=== PATIENT | female | born 1995 | race Caucasian/White ===

== ENCOUNTER 2016-11-19 02:04 | Emergency (ER) | payer BC ==
[2016-11-19] MEDS ORDERED: methylPREDNISolone SOD SUCC 125 MG/2 ML VIAL IVP ONE (02:24)
[2016-11-19] MEDS ORDERED: NS 1,000 ML IV ONE (02:24)
[2016-11-19] MEDS ORDERED: FAMOTIDINE 20 MG/2 ML SDV IVP ONE (02:24)
--- NOTE | 2016-11-19 03:31 | EDPHY ---
H & P Stated Complaint: allergic reaction to doxy, taking for bronchitis Time Seen by Provider: 11/19/16 03:08 HPI/ROS: HPI The patient presents with concern for allergic reaction. She started on a course of doxycycline yesterday and has had several doses of it for presumed bronchitis. She broke out in Issue and that is what brought her into the emergency room. She has no shortness of breath, difficulty swallowing, vomiting, dizziness. Prior to my assessment, she has received Benadryl and is feeling better. She has a history of hives as a child which she thought was due to anxiety. She denies any other new exposures. She does have a rash of her left axilla which she saw for the urgent care.. REVIEW OF SYSTEMS Constitutional: No fever, no chills. Eyes: No discharge. ENT: No sore throat. Cardiovascular: No chest pain, no palpitations. Respiratory: No cough, no shortness of breath. Gastrointestinal: No abdominal pain, no vomiting. Genitourinary: No hematuria. Musculoskeletal: No back pain. Skin: Urticaria present Neurological: No headache. PMHx: Healthy Soc Hx: No drug use PHYSICAL General Appearance: Alert, no distress Eyes: Pupils equal and round no pallor or injection ENT, Mouth: Mucous membranes moist Respiratory: There are no retractions, lungs are clear to auscultation Cardiovascular: Regular rate and rhythm Gastrointestinal: Abdomen is soft and non-tender, no masses, bowel sounds normal Neurological: A&O, moves all extremities Skin: Warm and dry, urticarial rash on her abdomen, extremities, back Musculoskeletal: Neck is supple non tender Extremities: symmetrical, full range of motion Psychiatric: Patient is oriented X 3, there is no agitation Source: Patient Exam Limitations: No limitations - Personal History Current Tetanus/Diphtheria Vaccine: Yes Current Tetanus Diphtheria and Acellular Pertussis (TDAP): Yes - Medical/Surgical History Hx Asthma: No Hx Chronic Respiratory Disease: No Hx Diabetes: No Hx Cardiac Disease: No Hx Renal Disease: No Hx Cirrhosis: No Hx Alcoholism: No Hx HIV/AIDS: No Hx Splenectomy or Spleen Trauma: No Other PMH: depression - Social History Smoking Status: Never smoked Constitutional: Initial Vital Signs Temperature (C) 36.8 C 11/19/16 02:10 Heart Rate 105 H 11/19/16 02:10 Respiratory Rate 20 11/19/16 02:10 Blood Pressure 150/90 H 11/19/16 02:10 O2 Sat (%) 98 11/19/16 02:10 O2 Delivery Mode Room Air Allergies/Adverse Reactions: doxycycline Allergy (Verified 11/19/16 20:48) Sulfa (Sulfonamide Antibiotics) Allergy (Verified 11/19/16 02:17) Home Medications: Medication Instructions Recorded Azithromycin [Zithromax] 250 mg PO DAILY #6 tab 11/19/16 Control Pills 11/19/16 Neurontin 11/19/16 Topiramate [Topamax] 11/19/16 lamOTRIGine [Lamictal] 150 mg PO 11/19/16 predniSONE 40 mg PO DAILY 4 Days 11/20/16 Medical Decision Making Differential Diagnosis: This is a 21-year-old female, recently started on doxycycline for bronchitis and axillary rash who presents from home with urticaria without any other signs of allergic reaction. Differential diagnosis includes urticaria, allergic reaction, anaphylaxis. She was monitored in the emergency room for several hours. She was given Solu-Medrol, Pepcid, Benadryl with improvement in her symptoms. I plan on having her stop doxycycline as I feel this is the cause of her reaction. We will start her on azithromycin instead. I have discussed return precautions with her. Because of the rash her axilla, I have referred her to Dermatology. - Data Points Medications Given: Discontinued Medications Diphenhydramine HCl (Benadryl Injection) 25 mg IVP EDNOW ONE Stop: 11/19/16 02:25 Last Admin: 11/19/16 02:44 Dose: 25 mg Famotidine (Pepcid) 20 mg IVP EDNOW ONE Stop: 11/19/16 02:25 Last Admin: 11/19/16 02:44 Dose: 20 mg Sodium Chloride (Ns) 1,000 mls @ 0 mls/hr IV ONCE ONE PRN Reason: Wide Open Stop: 11/19/16 02:25 Last Admin: 11/19/16 02:44 Dose: 1,000 mls Methylprednisolone Sodium Succinate (Solu-Medrol) 125 mg IVP EDNOW ONE Stop: 11/19/16 02:25 Last Admin: 11/19/16 02:44 Dose: 125 mg Departure - Departure Disposition: Home, Routine, Self-Care Clinical Impression: Urticaria, Allergic reaction, Bronchitis Condition: Good Instructions: Antibiotic Medication Allergy (ED) Additional Instructions: Please take Benadryl as needed if the rash continues. You should return to the emergency room if your worse in any way. For the rash in her armpit if it continues for 1 more week, you should follow up with the senior sql d[facility]. Referrals: Amol Alex MD [Medical Doctor] - As per Instructions Prescriptions: Azithromycin [Zithromax] 250 mg PO DAILY #6 tab
[2016-11-19 04:42] VITALS: BP 141/88; PULSE 91; RESP 16; TEMP 98.4; O2SAT 97
== END 2016-11-19 04:41 | disposition home or self-care (01) ==
DX: L50.0 Allergic urticaria (principal); J20.9 Acute bronchitis, unspecified
CPT/HCPCS: 96374; J1200

== ENCOUNTER 2016-11-19 20:47 | Emergency (ER) | payer BC ==
[2016-11-19] MEDS ORDERED: NS 1,000 ML IV ONE (21:03)
[2016-11-19] MEDS ORDERED: predniSONE 20 MG TAB PO ONE (21:03)
[2016-11-19] MEDS ORDERED: FAMOTIDINE 20 MG/2 ML SDV IVP ONE (21:03)
[2016-11-19] MEDS ORDERED: BENZONATATE 100 MG CAP PO ONE (21:34)
[2016-11-20] MEDS ORDERED: AZITHROMYCIN 250 MG TAB PO ONE (00:17)
--- NOTE | 2016-11-20 00:33 | EDPHY ---
H & P Stated Complaint: rebound allergy rxn, seen last night - Medical/Surgical History Hx Asthma: No Hx Chronic Respiratory Disease: No Hx Diabetes: No Hx Cardiac Disease: No Hx Renal Disease: No Hx Cirrhosis: No Hx Alcoholism: No Hx HIV/AIDS: No Hx Splenectomy or Spleen Trauma: No Other PMH: depression - Social History Smoking Status: Never smoked Time Seen by Provider: 11/19/16 20:58 HPI/ROS: Chief complaint: Allergic reaction History of present illness: This is a 21-year-old female who presents to the emergency department for evaluation of an allergic reaction. Patient was seen last night for the same. Patient has been sick for the last few days. She was started on doxycycline for bronchitis 2 days ago. She subsequently developed a rash and was seen in this emergency department last night. She was treated with Solu-Medrol, Benadryl and Pepcid with improvement in symptoms. The doxycycline was stopped and she was switched to azithromycin and asked to take Benadryl. She reports that symptoms have recurred again today. She has not started the azithromycin. She has not been taking Benadryl. She denies swelling of the throat or trouble breathing, no nausea or vomiting. No other associated signs or symptoms. Review of systems: A 10 point review of systems was obtained and other than described above was negative (Michael Gupta) - Physical Exam Exam: General Appearance: Alert, nontoxic. Eyes: Pupils equal and round no pallor or injection. ENT: Tympanic membranes, external auditory canals, external ears and surrounding soft tissue including over the mastoids are unremarkable. Nasopharynx is not injected. There is no rhinorrhea. Oropharynx is not injected. There is no edema, including no angioedema. There is no exudate. There is no asymmetry. The uvula is midline. No elevation of the tongue. There is no hoarseness, no drooling, no trismus, no stridor. Respiratory: There are no retractions, lungs are clear to auscultation. Cardiovascular: Regular rate and rhythm. Neurological: Alert and oriented x4. Strength and sensation intact and symmetrical. Skin: Warm and dry, no rashes. Musculoskeletal: Neck is supple non tender. Extremities are symmetrical, full range of motion. Psychiatric: Patient is oriented X 3, there is no agitation. (Michael Gupta) Constitutional: Initial Vital Signs Temperature (C) 36.8 C 11/19/16 20:52 Heart Rate 105 H 11/19/16 20:52 Respiratory Rate 20 11/19/16 20:52 Blood Pressure 138/83 H 11/19/16 20:52 O2 Sat (%) 95 11/19/16 20:52 O2 Delivery Mode Room Air Allergies/Adverse Reactions: doxycycline Allergy (Verified 11/19/16 20:48) Sulfa (Sulfonamide Antibiotics) Allergy (Verified 11/19/16 02:17) Home Medications: Medication Instructions Recorded Azithromycin [Zithromax] 250 mg PO DAILY #6 tab 11/19/16 Control Pills 11/19/16 Neurontin 11/19/16 Topiramate [Topamax] 11/19/16 lamOTRIGine [Lamictal] 150 mg PO 11/19/16 predniSONE 40 mg PO DAILY 4 Days 11/20/16 Medical Decision Making - Diagnostics Imaging: Chest x-ray unremarkable (Michael Gupta) ED Course/Re-evaluation: Patient seen under the supervision of my secondary supervising physician Dr. Hanh Palomino. Patient presents to the emergency department concerned she is having an allergic reaction. She was seen here last night for similar. She has not been taking any Benadryl or other medications to treat allergic reaction since being discharged. On presentation she is nontoxic. She is given prednisone, Benadryl and Pepcid and IV fluid. She has improvement in symptoms. She does have a continued severe cough and a chest x-ray is pursued and unremarkable. I do believe she is still suffering from an associated bronchitis. She will be discharged home on prednisone for an allergic reaction and asked to continue Benadryl. She is given her 1st dose of azithromycin in the emergency room and asked to take 4 more doses at 250 mg daily since she had her 1st dose tonight. Home care was discussed with the patient at length. She is asked to follow up with a primary care doctor for recheck. Strict return precautions were given. Patient voiced understanding and agreement with plan. ( Michael Gupta) Differential Diagnosis: Included but not limited to allergic reaction, anaphylaxis, viral exanthem, bronchitis, pneumonia (Michael Gupta) Other Provider: PA Supervision: I was the secondary supervising MD for this case. I agree with the diagnosis and treatment plan. (Hanh Palomino) - Data Points Medications Given: Discontinued Medications Azithromycin (Zithromax) 500 mg PO EDNOW ONE PRN Reason: Protocol Stop: 11/20/16 00:18 Last Admin: 11/20/16 00:25 Dose: 500 mg Benzonatate (Tessalon Pearles) 200 mg PO EDNOW ONE Stop: 11/19/16 21:35 Last Admin: 11/19/16 21:41 Dose: 200 mg Diphenhydramine HCl (Benadryl Injection) 25 mg IVP EDNOW ONE Stop: 11/19/16 21:04 Last Admin: 11/19/16 21:25 Dose: 25 mg Famotidine (Pepcid) 20 mg IVP EDNOW ONE Stop: 11/19/16 21:04 Last Admin: 11/19/16 21:26 Dose: 20 mg Sodium Chloride (Ns) 1,000 mls @ 0 mls/hr IV ONCE ONE PRN Reason: Wide Open Stop: 11/19/16 21:04 Last Admin: 11/19/16 21:22 Dose: 1,000 mls Prednisone (Prednisone) 60 mg PO EDNOW ONE Stop: 11/19/16 21:04 Last Admin: 11/19/16 21:20 Dose: 60 mg Departure - Departure Disposition: Home, Routine, Self-Care Clinical Impression: Bronchitis Allergic reaction Qualifiers: Encounter type: initial encounter Qualified Code(s): T78.40XA - Allergy, unspecified, initial encounter Condition: Good Instructions: Urticaria (ED), Acute Bronchitis (ED) Additional Instructions: Follow-up with the primary care doctor for recheck Start the azithromycin antibiotic tomorrow, only take 250 mg or 1 tablet once a day for the next 4 days Take prednisone as prescribed until finished Use [id number] Benadryl 25 mg every 6 hours for the next 2-3 days If symptoms worsen or new symptoms develop return to the emergency department for recheck Referrals: NONE *PRIMARY CARE P,. [Primary Care Provider] - As per Instructions Prescriptions: predniSONE 40 mg PO DAILY 4 Days
[2016-11-20 00:49] VITALS: BP 119/86; PULSE 92; RESP 16; TEMP 98.1; O2SAT 96
== END 2016-11-20 00:49 | disposition home or self-care (01) ==
DX: T78.40XA Allergy, unspecified, initial encounter (principal); J40 Bronchitis, not specified as acute or chronic
CPT/HCPCS: 96374; J1200

== ENCOUNTER 2017-08-29 03:56 | Emergency (ER) | payer BC ==
[2017-08-29] MEDS ORDERED: LORazepam 1 MG TAB ONE (04:18)
[2017-08-29] MEDS ORDERED: LORazepam 1 MG TAB PO ONE (04:19)
--- NOTE | 2017-08-29 04:59 | EDPHY ---
H & P Stated Complaint: PANIC ATTACK FOR PAST HOUR Time Seen by Provider: 08/29/17 04:14 HPI/ROS: HPI The patient presents with anxiety attack which has been present for the last 1 hour which is associated with feeling of impending doom, palpitations, shortness of breath, nausea. She has had these previously and the usually improved with Ativan. She is on medication for depression anxiety, however stop taking it a few weeks ago. She feels this is what precipitated her symptoms. She has not been sleeping well lately either and is feeling more stress in her life in general. She denies any suicidal or homicidal ideations. She denies any current drug or alcohol use.. REVIEW OF SYSTEMS Constitutional: No fever, no chills. Eyes: No discharge. ENT: No sore throat. Cardiovascular: No chest pain, no palpitations. Respiratory: No cough, no shortness of breath. Gastrointestinal: No abdominal pain, no vomiting. Genitourinary: No hematuria. Musculoskeletal: No back pain. Skin: No rashes. Neurological: No headache. PMHx: Anxiety and depression Soc Hx: Denies drug or alcohol use PHYSICAL General Appearance: Alert, anxious, poor eye contact, hyperventilating Eyes: Pupils equal and round no pallor or injection ENT, Mouth: Mucous membranes moist Respiratory: There are no retractions, lungs are clear to auscultation Cardiovascular: Tachycardic rate, regular rhythm Gastrointestinal: Abdomen is soft and non-tender, no masses, bowel sounds normal Neurological: A&O, moves all extremities Skin: Warm and dry, no rashes Musculoskeletal: Neck is supple non tender Extremities: symmetrical, full range of motion Psychiatric: Patient is oriented X 3, there is no agitation Source: Patient Exam Limitations: No limitations - Personal History LMP (Females 10-55): 22-28 Days Ago Current Tetanus/Diphtheria Vaccine: Yes Current Tetanus Diphtheria and Acellular Pertussis (TDAP): Yes - Medical/Surgical History Hx Asthma: No Hx Chronic Respiratory Disease: No Hx Diabetes: No Hx Cardiac Disease: No Hx Renal Disease: No Hx Cirrhosis: No Hx Alcoholism: No Hx HIV/AIDS: No Hx Splenectomy or Spleen Trauma: No Other PMH: depression/anxiety. - Social History Smoking Status: Never smoked Constitutional: Initial Vital Signs Temperature (C) 36.4 C 08/29/17 03:57 Heart Rate 111 H 08/29/17 03:57 Respiratory Rate 20 08/29/17 03:57 Blood Pressure 148/99 H 08/29/17 03:57 O2 Sat (%) 96 08/29/17 03:57 O2 Delivery Mode Room Air Allergies/Adverse Reactions: doxycycline Allergy (Verified 08/29/17 04:00) Sulfa (Sulfonamide Antibiotics) Allergy (Verified 08/29/17 04:00) Home Medications: Medication Instructions Recorded Azithromycin [Zithromax] 250 mg PO DAILY #6 tab 11/19/16 Control Pills 11/19/16 Neurontin 11/19/16 Topiramate [Topamax] 11/19/16 lamoTRIgine [Lamictal] 150 mg PO 11/19/16 predniSONE 40 mg PO DAILY 4 Days tablet 11/20/16 Medical Decision Making Differential Diagnosis: This is a 22-year-old female with history of anxiety and depression who presents with symptoms of anxiety attack. She has had history of similar previously. On exam, she does appear quite uncomfortable. I have given her Ativan 1 mg by mouth and this is caused improvement in her symptoms. I have instructed her that she needs to follow up with her treating mental health team. She says she has an appointment in 2 days with her therapist. I have instructed her that it would be beneficial if she resumes her medications and she is in agreement with this. She denies SI or HI and does not meet criteria for mental health hold. Will be discharged from the emergency department. Other differential diagnoses considered include alcohol withdrawal, substance use. - Data Points Medications Given: Discontinued Medications Lorazepam (Ativan) 1 mg PO EDNOW ONE Stop: 08/29/17 04:20 Last Admin: 08/29/17 04:20 Dose: 1 mg Departure - Departure Disposition: Home, Routine, Self-Care Clinical Impression: Anxiety attack Condition: Good Instructions: Anxiety (ED), Anxiolysis in Adults (ED) Additional Instructions: Please return to the emergency department if you are worse in any way. Referrals: [facility] [Clinic] - As per Instructions
[2017-08-29 05:04] VITALS: BP 117/63; PULSE 88; RESP 16; TEMP 97.9; O2SAT 97
== END 2017-08-29 05:04 | disposition home or self-care (01) ==
DX: F41.9 Anxiety disorder, unspecified (principal)